=== PATIENT | female | born 1995 | race Caucasian/White ===

== ENCOUNTER 2017-10-10 10:39 | Emergency (ER) | payer OTHER ==
[~2017-10-10] VITALS: Ht 167.6 cm; Wt 73.9 kg
[~2017-10-10 10:39] MED LIST: ATARAX,VISTARIL25 MG PO; BENADRYL25 MG PO; CIPRO250 MG PO; ENDOCET 5-3251 EACH PO; IBUPROFEN800 MG PO; NEXPLANON68 MG SC; NORCO 5/3251 TABLET PO; PEPCID40 MG PO; PERCOCET 5/31 TABLET PO; PHENERGAN25 MG PR; PREDNISONE20 MG PO; PROMETHAZINE HC25 M1 PO; REGLAN10 MG PO; ZANTAC150 MG PO; ZOFRAN ODT4 MG PO
[2017-10-10 12:09] LABS: HEMATOCRIT 41.1 % (36.0-46.0); HEMOGLOBIN 13.2 G/DL (11.9-15.5); MCH 27.6 PG (29.0-34.0); MCHC 32.1 G/DL (30.0-36.0); MCV 85.8 FL (83-99); RBC DIS.WIDTH-CV 13.9 % (11.8-14.6); RBC DIS.WIDTH-SD 43.6 % (39-53); RED BLOOD COUNT 4.79 M/uL (3.80-5.20); WHITE BLOOD COUNT 8.3 K/uL (4.1-10.2)
[2017-10-10 12:21] LABS: ALBUMIN 4.3 g/dL (3.2-4.8)
[2017-10-10 12:22] LABS: CHLORIDE 103 mEq/L (99-109); POTASSIUM 3.8 mEq/L (3.7-5.4); SODIUM 135 mEq/L (136-147)
[2017-10-10 12:24] LABS: GLUCOSE 82 mg/dL (70-99); TOTAL PROTEIN 7.4 g/dL (6.4-8.3)
[2017-10-10 12:26] LABS: TOTAL BILIRUBIN 0.4 mg/dL (0.0-1.0)
[2017-10-10 12:27] LABS: ALKALINE PHOSPHATASE 50 IU/L (3-129)
[2017-10-10 12:28] LABS: CREATININE 0.7 mg/dL (0.6-1.3); GFR ESTIMATE (CALCULATED) > 59 mL/min/
[2017-10-10 12:29] LABS: AST (GOT) 11 IU/L (2-34); UREA NITROGEN (BUN) 8 mg/dL (9-23)
[2017-10-10 12:30] LABS: ALT (GPT) 9 IU/L (3-49)
[2017-10-10 12:54] LABS: QUANTITATIVE HCG 90625.6 MIU/ML
[2017-10-10 13:06] LABS: PLAT.SUFFICIENCY ADEQUATE; PLATELET COUNT 292 K/uL (156-360)
[2017-10-10 13:28] LABS: APPEARANCE SL.HAZY ((CLEAR)); BILIRUBIN SMALL; BLOOD NEGATIVE; COLOR AMBER ((YELLOW)); GLUCOSE (STRIP) NEGATIVE; KETONES 20; LEUKOCYTES NEGATIVE; NITRITE NEGATIVE; PROTEIN (STRIP) 100; SPECIFIC GRAVITY 1.036 (1.000-1.030)
[2017-10-10 13:55] LABS: BACTERIA RARE /HPF; EPITHELIAL CELLS RARE /HPF; HYALINE CASTS 0-5 /LPF; MUCUS 3+ /LPF; RED BLOOD CELLS 0-5 /HPF (0-5); UCUL ADDED? NO; WHITE BLOOD CELLS 0-5 /HPF (0-5)
[2017-10-10] MEDS ORDERED: ZOFRAN4 MG SL (15:54)
[2017-10-10 16:12] VITALS: BP 109/65
[2017-10-24] MEDS ORDERED: PROMETHAZINE HC25 M1 PO (10:46)
== END 2017-10-10 16:13 | disposition home or self-care (01) ==
LOC: EME 10:39
DX: O21.9 Vomiting of pregnancy, unspecified (principal); Z3A.00 Weeks of gestation of pregnancy not specified
CPT/HCPCS: 80053; 81003; 84702; 85027; 99281; 99284; J2405; J7030

== ENCOUNTER 2017-10-15 06:50 | Emergency (ER) | payer OTHER ==
[~2017-10-15] VITALS: Ht 167.6 cm; Wt 73.8 kg
[~2017-10-15 06:50] MED LIST changes: +ZOFRAN4 MG SL
[2017-10-15 07:36] LABS: HEMATOCRIT 40.3 % (36.0-46.0); HEMOGLOBIN 13.3 G/DL (11.9-15.5); MCH 28.3 PG (29.0-34.0); MCV 85.7 FL (83-99); RBC DIS.WIDTH-CV 13.8 % (11.8-14.6); WHITE BLOOD COUNT 5.9 K/uL (4.1-10.2)
[2017-10-15 08:08] LABS: PLATELET COUNT 286 K/uL (156-360)
[2017-10-15 08:09] LABS: CHLORIDE 105 MEQ/L (99-109); CREATININE 0.6 MG/DL (0.6-1.3); GFR ESTIMATE (CALCULATED) > 59 mL/min/; GLUCOSE 92 mg/dL (70-99); POTASSIUM 4.1 MEQ/L (3.7-5.4); SODIUM 138 MEQ/L (136-147); UREA NITROGEN (BUN) 7 mg/dL (9-23)
[2017-10-15] MEDS ORDERED: ZOFRAN4 MG PO (10:53)
[2017-10-15] MEDS ORDERED: VITAMIN B-650 M1 PO (10:53)
[2017-10-15 13:23] VITALS: BP 114/85
== END 2017-10-15 13:24 | disposition home or self-care (01) ==
LOC: EME 06:50
DX: O21.0 Mild hyperemesis gravidarum (principal); R42 Dizziness and giddiness; Z3A.01 Less than 8 weeks gestation of pregnancy
CPT/HCPCS: 80048; 81003; 85027; 99281; 99283; J2405; J7120

== ENCOUNTER 2017-11-01 12:49 | Outpatient (CLI) | payer OTHER ==
[~2017-11-01] VITALS: Ht 167.6 cm; Wt 75.5 kg
[~2017-11-01 12:49] MED LIST changes: +VITAMIN B-650 M1 PO; +ZOFRAN4 MG PO
[2017-11-01 13:02] VITALS: BP 114/70
[2017-11-01 13:50] LABS: HEMATOCRIT 39.4 % (36.0-46.0); MCH 28.3 PG (29.0-34.0); MCV 85.7 FL (83-99); RBC DIS.WIDTH-CV 13.5 % (11.8-14.6); RBC DIS.WIDTH-SD 41.6 % (39-53); WHITE BLOOD COUNT 10.3 K/uL (4.1-10.2)
[2017-11-01 14:13] LABS: PLATELET CLUMPS PRESENT - PLATELET COUNT APPEARS ADQ.; PLATELET COUNT UNABLE TO REPORT K/uL (156-360)
[2017-11-01 14:16] LABS: ALBUMIN 4.1 G/DL (3.2-4.8); ALKALINE PHOSPHATASE 39 IU/L (3-129); ALT (GPT) 10 IU/L (3-49); AST (GOT) 11 IU/L (2-34); CHLORIDE 105 MEQ/L (99-109); CREATININE 0.5 MG/DL (0.6-1.3); GFR ESTIMATE (CALCULATED) > 59 mL/min/; GLUCOSE 85 mg/dL (70-99); MAGNESIUM 1.8 mg/dl (1.3-2.7); POTASSIUM 4.2 MEQ/L (3.7-5.4); SODIUM 138 MEQ/L (136-147); TOTAL BILIRUBIN 0.4 MG/DL (0.0-1.0); TOTAL PROTEIN 6.6 G/DL (6.4-8.3); UREA NITROGEN (BUN) 6 mg/dL (9-23)
[2017-11-01 19:15] VITALS: BP 125/56
[2017-11-01 23:30] VITALS: BP 111/56
[2017-11-02 03:14] VITALS: BP 104/44
[2017-11-02 06:55] VITALS: BP 101/51
== END 2017-11-02 10:17 | disposition home or self-care (01) ==
LOC: LDRP-OP 12:49 → 2WEST 12:50
PROVIDERS: Obstetrics & Gynecology Obstetrics
DX: O21.0 Mild hyperemesis gravidarum (principal); Z3A.10 10 weeks gestation of pregnancy; O26.891 Other specified pregnancy related conditions, first trimester; R10.9 Unspecified abdominal pain
CPT/HCPCS: 59025; 76801; 80053; 83735; 85027; G0378; J2765; J3411; J3415; J7120; S0028

== ENCOUNTER 2018-03-31 12:36 | Outpatient (CLI) | payer OTHER ==
[~2018-03-31] VITALS: Ht 167.6 cm; Wt 79.0 kg
[~2018-03-31 12:36] MED LIST changes: +REGLAN5 MG PO
[2018-03-31 13:13] LABS: HEMOGLOBIN 9.6 G/DL (11.9-15.5); MCH 26.5 PG (29.0-34.0); MCV 82.9 FL (83-99); PLATELET COUNT 311 K/uL (156-360); RBC DIS.WIDTH-CV 13.8 % (11.8-14.6); RED BLOOD COUNT 3.62 M/uL (3.80-5.20); WHITE BLOOD COUNT 11.3 K/uL (4.1-10.2)
[2018-03-31 13:33] LABS: CHLORIDE 106 mEq/L (99-109); POTASSIUM 4.2 mEq/L (3.7-5.4); SODIUM 136 mEq/L (136-147)
[2018-03-31 13:35] LABS: GLUCOSE 74 mg/dL (70-99)
[2018-03-31 13:39] LABS: CREATININE 0.6 mg/dL (0.6-1.3); GFR ESTIMATE (CALCULATED) > 59 mL/min/; UREA NITROGEN (BUN) 5 mg/dL (9-23)
[2018-03-31 13:45] LABS: TROP-I INTERPRETATION NEGATIVE; TROPONIN-I < 0.01 ng/mL (0.0-0.30)
[2018-03-31 17:37] VITALS: BP 144/63
[2018-03-31] MEDS ORDERED: IRON325 M1 PO (18:08)
[2018-03-31 18:13] VITALS: BP 135/64
== END 2018-03-31 19:13 | disposition home or self-care (01) ==
LOC: EME 12:36 → LDRP-OP 12:36 → EDSTATUS 17:35 → 2WEST 17:37
DX: O99.89 Other specified diseases and conditions complicating pregnancy, childbirth and the puerperium (principal); R06.02 Shortness of breath; O99.343 Other mental disorders complicating pregnancy, third trimester; F32.9 Major depressive disorder, single episode, unspecified; Z3A.31 31 weeks gestation of pregnancy
CPT/HCPCS: 59025; 71046; 71275; 80048; 84484; 85027; 93005; 93970; 99281; 99285; G0378; J7030

== ENCOUNTER 2018-04-07 08:43 | Outpatient (CLI) | payer OTHER ==
[~2018-04-07 08:43] MED LIST changes: +IRON325 M1 PO
[2018-04-07 08:54] VITALS: BP 117/63
== END 2018-04-07 10:21 | disposition home or self-care (01) ==
LOC: LDRP-OP 08:43 → 2WEST 08:44 → LDRP-OP 06-27 10:32
DX: O26.893 Other specified pregnancy related conditions, third trimester (principal); Z3A.32 32 weeks gestation of pregnancy
CPT/HCPCS: 59025; G0378

== ENCOUNTER 2018-04-15 12:57 | Outpatient (CLI) | payer OTHER ==
[~2018-04-15] VITALS: Ht 167.6 cm; Wt 79.0 kg
[2018-04-15 13:08] VITALS: BP 127/63
[2018-04-15] MEDS ORDERED: LOVENOX80 MG/0.8 SC (14:07)
== END 2018-04-15 14:50 | disposition home or self-care (01) ==
LOC: LDRP-OP 12:57 → 2WEST 12:58 → LDRP-OP 06-27 13:56
DX: O22.8X3 Other venous complications in pregnancy, third trimester (principal); I82.612 Acute embolism and thrombosis of superficial veins of left upper extremity
CPT/HCPCS: 59025; G0378; J1650

== ENCOUNTER 2018-05-14 07:00 | Inpatient (IN) | payer OTHER ==
[~2018-05-14] VITALS: Ht 167.6 cm; Wt 80.0 kg
[2018-05-14] VITALS (16 sets, daily range): BP systolic 108–145; BP diastolic 56–81
[~2018-05-14 07:00] MED LIST changes: +LOVENOX80 MG/0.8 SC
[2018-05-14 08:58] LABS: BASOPHIL (%) 0.4 % (0-1); EOSINOPHIL (%) 1.8 % (0-5); EOSINOPHIL COUNT 0.2 K/uL (0-0.3); HEMATOCRIT 27.7 % (36.0-46.0); HEMOGLOBIN 8.7 G/DL (11.9-15.5); LYMPHOCYTE COUNT 2.5 K/uL (1.0-2.8); MCH 23.7 PG (29.0-34.0); MCHC 31.4 G/DL (30.0-36.0); MCV 75.5 FL (83-99); MONOCYTE (%) 7.1 % (3-12); MONOCYTE COUNT 0.7 K/uL (0-0.8); NEUTROPHIL (%) 65.7 % (45-76); NEUTROPHIL COUNT 6.7 K/uL (1.8-6.4); PLATELET COUNT 256 K/uL (156-360); RBC DIS.WIDTH-CV 16.2 % (11.8-14.6); RBC DIS.WIDTH-SD 44.3 % (39-53); RED BLOOD COUNT 3.67 M/uL (3.80-5.20); WHITE BLOOD COUNT 10.3 K/uL (4.1-10.2)
[2018-05-14 10:49] LABS: TREPONEMA ANTIBODY NEGATIVE (NEGATIVE)
[2018-05-14 17:20] LABS: AMPHETAMINE NEGATIVE (500 ng/mL); BARBITURATES NEGATIVE (200 ng/mL); BENZODIAZEPINES NEGATIVE (150 ng/mL); BUPRENORPHINE NEGATIVE (10 ng/mL); COCAINE NEGATIVE (150 ng/mL); METHADONE NEGATIVE (200 ng/mL); METHAMPHETAMINE NEGATIVE (500 ng/mL); OPIATES (MORPHINE) NEGATIVE (100 ng/mL); OXYCODONE NEGATIVE (100 ng/mL); PHENCYCLIDINE NEGATIVE (25 ng/mL); PROPOXYPHENE NEGATIVE (300 ng/mL); THC CANNABINOIDS NEGATIVE (50 ng/mL); TRICYCLIC ANTIDEPRESSANTS NEGATIVE (300 ng/mL)
[2018-05-15] VITALS (18 sets, daily range): BP systolic 92–149; BP diastolic 51–75
[2018-05-15] MEDS ORDERED: IBUPROFEN800 MG PO (07:34)
[2018-05-16 07:04] VITALS: BP 116/58
[2018-05-16 14:48] VITALS: BP 117/72
== END 2018-05-17 13:16 | disposition home or self-care (01) | DRG 774 ==
LOC: LDRP-OP 07:00 → 2WEST 07:01 → LDRP-OP 16:13 → 2WEST 05-15 06:32 → LDRP-OP 05-16 20:01 → 2WEST 05-17 13:16
PROVIDERS: Advanced Practice Midwife
PROC: 3E033VJ Introduction of Other Hormone into Peripheral Vein, Percutaneous Approach (ICD-10-PCS; principal; 2018-05-15)
PROC: 3E0P7VZ Introduction of Hormone into Female Reproductive, Via Natural or Artificial Opening (ICD-10-PCS; principal; 2018-05-15)
PROC: 10E0XZZ Delivery of Products of Conception, External Approach (ICD-10-PCS; principal; 2018-05-15)
PROC: 00HU33Z Insertion of Infusion Device into Spinal Canal, Percutaneous Approach (ICD-10-PCS; principal; 2018-05-15)
PROC: 3E0R3BZ Introduction of Anesthetic Agent into Spinal Canal, Percutaneous Approach (ICD-10-PCS; principal; 2018-05-15)
DX: O36.5930 Maternal care for other known or suspected poor fetal growth, third trimester, not applicable or unspecified (principal); O99.824 Streptococcus B carrier state complicating childbirth; O88.22 Thromboembolism in childbirth; I82.619 Acute embolism and thrombosis of superficial veins of unspecified upper extremity; O12.04 Gestational edema, complicating childbirth; O99.02 Anemia complicating childbirth; D50.9 Iron deficiency anemia, unspecified; Z3A.38 38 weeks gestation of pregnancy; Z37.0 Single live birth
CPT/HCPCS: 85025; 86780; C1755; G0378; J0595; J1650; J2540; J3010; J7120